=== PATIENT | female | born 1965 | race African-American/Black ===

== ENCOUNTER 2018-06-03 11:25 | Emergency (ER) | payer MEDICARE ==
[~2018-06-03] VITALS: Ht 165.1 cm; Wt 86.0 kg
[2018-06-03] MEDS ORDERED: SODIUM CHLORIDE 0.9% 1,000 ML IV ONE (17:29)
[2018-06-03] MEDS ORDERED: MORPHINE SULFATE 4 MG/ML CPJ (NOT FOR IM USE) IV STA (17:29)
[2018-06-03] MEDS ORDERED: ONDANSETRON HCL 4MG/2ML INJ IV STA (17:29)
[2018-06-03 18:39] LABS: BASOPHILS % 0.2 % (0.0-2.0); EOSINOPHILS % 1.2 % (0.0-5.0); HEMATOCRIT. 43.7 % (36.0-48.0); HEMOGLOBIN. 14.6 g/dL (12.0-16.0); LYMPHOCYTES % 30.7 % (20.0-50.0); MEAN CORPUSCULAR HEMOGLOBIN 31.4 pg (28.0-32.0); MEAN CORPUSCULAR VOLUME 94.1 fL (81.0-99.0); MEAN PLATELET VOLUME 8.4 fl (7.4-10.4); MONOCYTES % 5.3 % (2.0-8.0); NEUTROPHILS % 62.6 % (40.0-76.0); PLATELET 273 x1000/uL (130-400); RED BLOOD CELL COUNT 4.64 mill/uL (4.2-5.4); RED CELL DISTRIBUTION WIDTH 14.1 % (11.6-14.6)
[2018-06-03 18:42] LABS: CHLORIDE 104 mEq/L (98-107)
[2018-06-03 18:47] LABS: CLARITY URINE CLEAR (CLEAR); COLOR URINE YELLOW (YELLOW); KETONES URINE TRACE (NEGATIVE); LEUKOCYTE ESTERASE URINE 3+ (NEGATIVE); NITRITE URINE NEGATIVE (NEGATIVE); OCCULT BLOOD URINE NEGATIVE (NEGATIVE); PH URINE 6.5 (4.5-8.0); PROTEIN URINE NEGATIVE (NEGATIVE); SPECIFIC GRAVITY URINE 1.019 (1.005-1.030); UROBILINOGEN URINE 0.2 E.U./dL (0.2-1.0)
[2018-06-03 21:36] VITALS: BP 122/76
== END 2018-06-03 22:25 | disposition home or self-care (01) ==
LOC: ER 11:25
DX: N39.0 Urinary tract infection, site not specified (principal); K76.0 Fatty (change of) liver, not elsewhere classified
CPT/HCPCS: 36415; 71045; 76700; 80053; 81003; 83690; 85025; 87086; 93005; 96361; 96374; 96375; 99284; J2270; J2405; J7030; Z7610

== ENCOUNTER 2024-12-20 02:51 | Emergency (ER) | payer MEDICAID, MEDICARE ==
[~2024-12-20] VITALS: Ht 165.1 cm; Wt 94.0 kg
[2024-12-20 03:01] VITALS: O2SAT 99
[2024-12-20 03:54] LABS: BASOPHILS % 0.4 % (0.0-2.0); EOSINOPHILS % 1.9 % (0.0-5.0); HEMATOCRIT. 38.3 % (36.0-48.0); HEMOGLOBIN. 12.8 g/dL (12.0-16.0); LYMPHOCYTES % 27.8 % (20.0-50.0); MEAN PLATELET VOLUME 7.8 fl (7.4-10.4); MONOCYTES % 6.6 % (2.0-8.0); NEUTROPHILS % 63.3 % (40.0-76.0); PLATELET 247 x1000/uL (130-400); RED BLOOD CELL COUNT 4.18 mill/uL (4.2-5.4); RED CELL DISTRIBUTION WIDTH 14.1 % (11.6-14.6)
[2024-12-20] MEDS: ONDANSETRON HCL 4MG/2ML INJ IV ONE (04:17)
[2024-12-20] MEDS: SODIUM CHLORIDE 0.9% 1,000 ML IV ONE ×2 (04:17→05:29)
[2024-12-20] MEDS: MORPHINE SULFATE 4 MG/ML INJ (FOR IV/IM USE) IV ONE (04:23)
[2024-12-20] MEDS: KETOROLAC 15MG/ML VIAL IV ONE (04:24)
[2024-12-20 04:33] LABS: CREATININE 0.9 mg/dL (0.6-1.0); UREA NITROGEN BLOOD 11 mg/dL (9-23)
[2024-12-20 04:34] LABS: ETHANOL BLOOD < 10 mg/dL (<10)
[2024-12-20 04:35] LABS: ASPARTATE AMINOTRANSFERASE 20 IU/L (<34); BILIRUBIN DIRECT 0.1 mg/dL (<=3.0); BILIRUBIN TOTAL 0.7 mg/dL (0.1-1.0); PROTEIN TOTAL 6.5 g/dL (6.0-8.3)
[2024-12-20 04:55] LABS: CLARITY URINE CLOUDY (CLEAR); COLOR URINE YELLOW (YELLOW); GLUCOSE URINE NEGATIVE (NEGATIVE); KETONES URINE NEGATIVE (NEGATIVE); LEUKOCYTE ESTERASE URINE 3+ (NEGATIVE); NITRITE URINE NEGATIVE (NEGATIVE); OCCULT BLOOD URINE 3+ (NEGATIVE); PH URINE 6.0 (4.5-8.0); PROTEIN URINE 1+ (NEGATIVE); SPECIFIC GRAVITY URINE 1.015 (1.005-1.030); UROBILINOGEN URINE 1.0 E.U./dL (0.2-1.0)
[2024-12-20 05:20] LABS: *AMPHETAMINES SCREEN URINE NEGATIVE (NEGATIVE); *BARBITURATES SCREEN URINE NEGATIVE (NEGATIVE); *BENZODIAZEPINES SCREEN URINE NEGATIVE (NEGATIVE); *COCAINE SCREEN URINE NEGATIVE (NEGATIVE); CANNABINOID URINE SCREEN NEGATIVE (NEGATIVE); ECSTASY MDMA SCREEN URINE NEGATIVE (NEGATIVE); METHADONE URINE SCREEN NEGATIVE (NEGATIVE); OPIATES URINE SCREEN NEGATIVE (NEGATIVE); PHENCYCLIDINE URINE SCREEN NEGATIVE (NEGATIVE)
[2024-12-20] MEDS: CEFTRIAXONE 1GM/50ML 50 ML IV ONE (06:01)
[2024-12-20 06:28] LABS: SQUAMOUS EPITHELIAL CELL URINE 1+ /lpf (RARE/1+); WBC URINE TNTC /hpf (0-2)
[2024-12-20 06:29] LABS: RBC URINE TNTC /hpf (0-2)
[2024-12-20 06:32] LABS: BACTERIA URINE TRACE
[2024-12-20 07:30] VITALS: BP 131/79; PULSE 62; RESP 13; TEMP 36.9; O2SAT 96
[2024-12-20] MEDS ORDERED: DOCUSATE SODIUM 100MG CAPSULE PO PRN (08:00)
[2024-12-20] MEDS ORDERED: ONDANSETRON HCL 4MG/2ML INJ IV PRN (08:00)
[2024-12-20] MEDS ORDERED: CLONIDINE 0.1MG TABLET PO PRN (08:00)
[2024-12-20] MEDS ORDERED: IPRATROPIUM/ALBUTEROL 0.5-3(2.5)MG/3ML NEB HHN PRN (08:00)
[2024-12-20] MEDS ORDERED: ACETAMINOPHEN 325MG TABLET PO PRN ×2 (08:00)
[2024-12-20] MEDS ORDERED: MAGNESIUM/ALUMINUM HYDROXIDE/SIMETHICONE 30ML UDC PO PRN (08:00)
[2024-12-20] MEDS ORDERED: LEVOFLOXACIN 750MG PREMIX 150 ML IV SCH (09:00)
== END 2024-12-20 08:36 | disposition left against medical advice (07) ==
LOC: ER 02:51 → EDBEDREQ 05:23 → EDBEDREQTM 05:23 → ER 08:36 → CMPBEDREQ 12-21 19:25
DX: N20.0 Calculus of kidney (principal); N39.0 Urinary tract infection, site not specified; Z90.710 Acquired absence of both cervix and uterus; Z79.899 Other long term (current) drug therapy
CPT/HCPCS: 80076; 80305; 80048; 81003; 80320; 83690; 83735; 85025; 87086; 36415; 74176; 96361; 96365; 96366; 96375; 99285; J0696; J1885; J2405; J2270; J7030; G0480